=== PATIENT | female | born 1965 | race Caucasian/White ===

== ENCOUNTER 2017-10-12 10:30 | Outpatient (RCR) | payer OTHER, SELFPAY ==
--- NOTE | 2017-08-18 08:43 | HP.OTEVAL_ITS ---
Patient's Visit Information STEPHEN AGGARWAL is a 52 year old F, referred to Occupational Therapy by DR.JGESLE Chaz, with a diagnosis of Repair of ulnar collateral lig.. 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 Pt went to [facility] had x-rays without any fracture noted. Pt was seen by a doctor in [place]- who indicated there was a torn lig. and that she needed sx. pt underwent a ulnar collateral lig. repair Jun.27. cast was removed on . and has attendend 1st therapy session. 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 with BADLS and IADLS by d/c. Pt will demo a increase in right lateral and tripod pinch to increase her ind. with her FMS, meal prep and cleaning by d/c Goal:: pt will will demo a increase in IF flex to 20 degrees to increase pts ind. with BADLS and IADLS Goal:: pt will report pain no greater than 2/10 with use of righ hand for BADls and IADLS Goal:: pt will demo ind.with picking up coins, buttons, zippers etc to increase pts ind. with money and FM manipulation by d/c Goal:: pt will demo understanding of scar mtg by end of 2nd session. - Rehabilitation General Assessment: pt demo with decreased functional ROM and strength of right thumb following right ulnar collateral lig. repair. pt would benefit from skilld OTR/L, CHT services to return pt to PLOF Rehabilitation Potential: Good - Anticipated Interventions Anticipated Interventions: A/AAROM/PROM, Strengthening, Scar Care, Triggerpoint Release, Desensitization, Modalities - Visit Plan Frequency: 2-3x /Week Duration: 4-6 Weeks General Plan: skilled therapy services with initiate ROM, scar mtg and desensitization and progress to PRE to return pt to PLOF. TEXT: Thank you for the opportunity to evaluate your patient. For Medicare and Medicare HMO plans, please review the plan of care and approve it. It will need to be FAXED BACK to us at [phone] for Medicare purposes. Please let me know if there are questions or concerns regarding this plan of care. Physician Signature: Date:
--- NOTE | 2017-12-13 11:45 | HP.OT.NRP ---
HP - Discharge Summary - Patient Information STEPHEN AGGARWAL was seen in my office for initial evaluation on 08/17/17. The following Plan of Care was established for this patient: Initial Frequency: 2-3x /Week Initial Duration: 4-6 Weeks Plan: cont POC - Anticipated Interventions Anticipated Interventions: A/AAROM/PROM, Strengthening, Scar Care, Triggerpoint Release, Desensitization, Modalities This patient was last seen in our office 10/12/17. Pertinent comments regarding their Occupational therapy will appear below: Pt was seen for 10 inital visits and 3 of her 12 following approved visits- pt made good gains and was last seen on 10-12-17- pt has not scheduled any further apts and is D/C at this time. At this point I will be discontinuing this patient from occupational therapy. I would be happy to see this patient again in the future if found appropriate by the physician. Thank you! Pauline Kim, OTR/L, CHT
== END 2017-10-12 19:00 | disposition home or self-care (01) ==
LOC: OT 10:30
PROVIDERS: Family Provider Family Medicine; PCP Family Medicine; Visit Provider Orthopaedic Surgery
DX: S63.641D Sprain of metacarpophalangeal joint of right thumb, subsequent encounter (principal)
CPT/HCPCS: 97035; 97110; 97140; 97166; 97530

== ENCOUNTER 2017-10-24 07:02 | Day surgery (SDC) | payer MEDICAID, SELFPAY ==
--- NOTE | 2017-10-23 21:28 | PCM.HP.BLA ---
History and Physical Date of Admission: 10/24/17 HISTORY OF PRESENT ILLNESS: 52-year-old woman presents with a painful recurrent soft tissue mass right lateral abdominal wall that has increased in size over the last several months. She denies any trauma. There is discomfort when she bumps it. She denies any fever. She denies any recent infection or some recent drainage. She presents at this time for further evaluation and treatment. PAST MEDICAL HISTORY: Anemia. chickenpox. frequent headaches. anxiety. tonsillitis. painful lipoma right abdominal wall. painful lipoma left hip. painful lipoma left lateral malleolus. lipoma upper neck/inferior chin. lipoma right lateral malleolus area. back pain. obesity. painful soft tissue mass right anterolateral ankle. Torn ulnar collateral ligament right thumb PAST SURGICAL HISTORY: Lipoma removal, cholecystectomy, ablation, , tonsillectomy, all teeth removed and she has dentures, excision of painful soft tissue mass, right abdominal wall with layered closure - September,. excision of painful soft tissue mass on left hip with layered closure and excision painful soft tissue mass on left lateral malleolus with layered closure - October,. excision painful soft tissue mass right lateral malleolus area with layered closure and excision painful soft tissue mass upper neck/inferior chin with layered closure - January,. Excision 5 cm painful soft tissue mass right anterolateral ankle - 10/21/13 Diagnostic knee scope with a partial synovectomy and plica resection, chondroplasty of the patellofemoral joint and chondroplasty of the medial femoral condyle - 04/03/14 Hysterectomy Repair ulnar collateral ligament injury right thumb - 07/09 MEDICATIONS: Sulindac, ipratropium, Advair, fluticasone, Advil, tramadol and metaxalone. Mobic. ALLERGIES: AMOXICILLIN, VICODIN, PERCOCET, AND PENICILLIN. SOCIAL HISTORY: The patient does not smoke. The patient does not drink alcohol. The patient does not use aspirin. The patient uses ibuprofen as needed for pain. FAMILY HISTORY: Negative for skin cancer. Positive for mental retardation, anemia, hypertension, seizures, autism, rheumatoid arthritis, cancer, diabetes. Negative for bleeding disorders. REVIEW OF SYSTEMS: GENERAL: Denies fever, fatigue and weight loss. EYES: Denies eye pain. ENT: Denies nasal congestion and sore throat. Had tonsillectomy and all teeth removed and has dentures. CARDIOVASCULAR: Denies chest pain, fatigue, lightheadedness and shortness of breath with exertion. RESPIRATORY: Denies cough and shortness of breath. GASTROINTESTINAL: Denies nausea, vomiting, diarrhea or constipation. Had cholecystectomy. GENITOURINARY: Denies hematuria and urinary frequency. Had and had ablation. MUSCULOSKELETAL: Complains of back pain. Denies joint pain, stiffness, muscle weakness or arthritis. Has had right knee pain. INTEGUMENTARY: Has painful soft tissue mass right lateral abdominal wall. Has had multiple lipomas excised in the past. NEUROLOGIC: Complains of headaches, numbness, tingling and weakness. Denies poor balance. PSYCHOLOGICAL: Complains of anxiety. Denies depression. ENDOCRINE: Denies excessive thirst or urination. HEMATOLOGIC: Denies abnormal bruising and fevers. Denies anemia. PHYSICAL EXAMINATION: HEENT: Pupils equal, round and reactive to light. Extraocular muscles intact. Throat is clear. NECK: Supple. Nontender. No cervical adenopathy. LUNGS: Clear to auscultation. HEART: Regular rate and rhythm. ABDOMEN: Soft. nondistended. On the right lateral abdominal wall is a soft tissue mass that is mobile. Measures 1.5 cm. Slight tenderness to palpation. No ulceration. No drainage. No evidence of infection. EXTREMITIES: No clubbing, cyanosis or edema. Full range of motion her lower extremities. No axillary adenopathy. No inguinal adenopathy. NEUROLOGIC: Cranial nerves II-XII are grossly intact. IMPRESSION: 1.5-cm painful recurrent soft tissue mass right lateral abdominal wall. PLAN: Recommend excision of this painful recurrent soft tissue mass right lateral abdominal wall and send it to Pathology for analysis to rule out carcinoma. Surgery will be done under anesthesia on an outpatient basis. Depending on the size of the cavity after excision, a drain may be necessary. The patient was informed of the risks and complications of the procedure, including alternatives of surgery. These were discussed with her personally. She voiced understanding and wished to proceed. Some of the risks and complications were included in a form from the [employer].
--- NOTE | 2017-10-24 07:09 | EKG12_ITS ---
Test Reason : PREOP Blood Pressure : / mmHG Vent. Rate : 068 BPM Atrial Rate : 068 BPM P-R Int : 154 ms QRS Dur : 098 ms QT Int : 418 ms P-R-T Axes : 025 -10 022 degrees QTc Int : 444 ms Normal sinus rhythm Normal ECG When compared with ECG of 21-OCT-2013 11:42, No significant change was found Confirmed by TIARRA GEORGE, NELSON ([id number]), rewrite editor RHODA TOBAR ([id number]) on 10/27/2017 1:06:30 PM Referred By: Mukund Curry Confirmed By:NELSON MAYEN MD
[2017-10-24 07:30] VITALS: BP 109/61; PULSE 79; RESP 18; TEMP 36.6; O2SAT 100; BMI 43.9
--- NOTE | 2017-10-24 08:00 | MASS_PTH ---
PATIENT: STEPHEN STALLWORTH LOC: [facility] [place] U#:[id number] AGE/SX: 52/F ROOM: RE10/24/[address]: Dr. Mukund Curry MD : [id number] BED: DIS: 10/24/2017 SPEC #: [id number] RECD: 10/24/17 10:32 STATUS: SUKUMAR ROSE #: [id number] JOSAFAT: 10/24/17 08:[address]: Mukund Curry DEPT: SURGICAL PATHOLOGY RECD BY: Noe Renteria ENTERED: 10/24/17 13:18 SP TYPE: Mass OTHR DR: Dr. Sammy Inman MD Tissues: Abdomen, NOS Procedures: Surgery Specimen Level III HEADER OPERATION: Excision mass lateral abdominal wall PRE-OP DIAGNOSIS: 1.5 cm painful soft tissue mass right lateral abdominal wall TISSUE SUBMITTED: Painful soft tissue mass right lateral abdominal wall MICROSCOPIC DIAGNOSIS Painful soft tissue mass right lateral abdominal wall, excision: Mature adipose tissue, consistent with lipoma. SJ:lyssa 10/25/17 MICROSCOPIC DESCRIPTION Slides are reviewed. GROSS DESCRIPTION Received in fixative is one container labeled with the patient's name and designated painful soft tissue mass right lateral abdominal wall. The specimen consists of a piece of skin with underlying adipose tissue. The skin piece measures 5 x 1 cm. The underlying adipose tissue is partly disrupted and measures 8 x 8 x 4 cm. Also present in the container is a piece of yellow adipose tissue measuring 2.5 x 1.5 x 0.5 cm. Sections reveal yellow adipose cut surfaces without any solid mass lesion. Core Blower Operator sections are submitted in three cassettes. / NATAN:lyssa 10/24/17 TC:1 CPT: 88652
[2017-10-24] MEDS: Clindamycin 900 MG/50 ML BAG 75 MG IV (08:30)
[2017-10-24 09:31] VITALS: BP 109/61; BP 124/81; PULSE 73; RESP 18; TEMP 36.3; O2SAT 97
--- NOTE | 2017-10-24 09:33 | OP.PN_ITS ---
Immediate Post-Op Note Date of Procedure: 10/24/17 Primary Surgeon/Physician: Mukund Curry advertising inserter: None Pre-Operative Diagnosis: 1.5-cm painful recurrent soft tissue mass right lateral abdominal wall. Post-Operative Diagnosis: 1.5-cm painful recurrent subfascial soft tissue mass right lateral abdominal wall. Surgery/Procedure Performed:: Excision 1.5-cm painful recurrent subfascial soft tissue mass right lateral abdominal wall with 7 cm complex closure. Description of Surgical Findings:: 52-year-old woman presents with a painful recurrent soft tissue mass right lateral abdominal wall that has increased in size over the last several months. She denies any trauma. There is discomfort when she bumps it. She denies any fever. She denies any recent infection or some recent drainage. Today the patient underwent excision 1.5-cm painful recurrent subfascial soft tissue mass right lateral abdominal wall with 7 cm complex closure. I used Deb absorbable hemostat. Reference Number - [id number]. Lot Number - [id number]. Expiration - May 20, 2022. Estimated Blood Loss: 20 ml. Specimen's removed: Painful recurrent subfascial soft tissue mass right lateral abdominal wall to Pathology. Drains: Sim. Type of Anesthesia:: Local MAC - xylocaine with epinephrine and IV sedation. - Admit VTE Documentation VTE Present on Admission: No VTE Mechan Device Prophylaxis: SCD's VTE Pharm Prophylaxis ordered?: No
[2017-10-24 09:35] VITALS: BP 109/61; BP 126/57; PULSE 71; RESP 18; O2SAT 97
[2017-10-24 09:40] VITALS: BP 109/61; BP 130/86; PULSE 71; RESP 18; O2SAT 97
--- NOTE | 2017-10-24 09:42 | PCM.DC ---
You will use the following diet at home:: No restrictions Discharge Activity: May not drive while taking narcotic pain medications., - - no heavy lifting. May shower in (days): 7 - when the drain is removed. May resume sexual activity in: No Restrictions Weight Bearing Status: Weight bearing as tolerated Lifting Restrictions: 20 lbs. Call your doctor if your incision/area has: Continuous Slow Oozing, Sudden Increased Bleeding, Increased Pain/ Swelling, Increased Redness, Foul Smelling Discharge, Swelling at the incision site Call your doctor if you observe: Fever of 101 or Higher, Coldness, Increased Pain, Shortness of breath, Chest pain, Uncontrolled pain Suture Line Care: - - after dressing removed in two days, apply antibiotic ointment to suture line daily. Change Dressing in (Days):: 2 - dry dressings daily. Cleanse incision/area with: - - may get incision wet in the shower in two days. Drain: Suction - rosanna drain to bulb suction. empty and record output daily. Allergies/Adverse Reactions: Allergies amoxicillin [Amoxicillin] Allergy (Verified 10/13/17 10:21) Anaphylaxis hydrocodone bitartrate [From Vicodin] Allergy (Verified 10/13/17 10:21) Nausea oxycodone HCl [From Percocet] Allergy (Verified 10/13/17 10:21) Nausea Penicillins Allergy (Verified 10/13/17 10:21) Swelling Medications to take at Discharge Fluticasone 0.05% [Flonase Nasal [place]] 1 spray NASAL PRN PRN 10/18/13 traMADol [Ultram] 50 mg PO PRN PRN 03/14/14 Chromium/Herbal Complex No.238 [Green Tea Caplet] 1 each PO DAILY 10/13/17 L.acidoph,Paracasei, B.lactis [Probiotic] 1 each PO DAILY 10/13/17 Metformin HCl [Glucophage] 500 mg PO PRN PRN 10/13/17 Multivit-Min/Folic Acid/Biotin [Women Multivit W-Biotin Gummy] 1 each PO DAILY 10/13/17 Ubidecarenone [Co Q-10] 100 mg PO DAILY 10/13/17 Clindamycin HCl [Cleocin] 300 mg PO TID #15 cap 10/24/17 HYDROmorphone tablet [Dilaudid] 2 - 4 mg PO 4X/DAY PRN PRN 4 Days #30 tab 10/24/17 The following prescriptions were given: HYDROmorphone tablet [Dilaudid] 2 - 4 mg PO 4X/DAY PRN PRN 4 Days #30 tab PRN Reason: Pain Clindamycin HCl [Cleocin] 300 mg PO TID #15 cap Primary Care Physician: Sammy Inman MD [Primary Care Provider] - Please Follow Up With: Mukund Curry MD When: one week. call [phone] for appt. Proposed Discharge Date: 10/24/17
[2017-10-24 09:45] VITALS: BP 109/61; BP 123/67; PULSE 70; RESP 18; TEMP 36.5; O2SAT 95
--- NOTE | 2017-10-24 09:47 | DCINST_ITS ---
You will use the following diet at home:: No restrictions Discharge Activity: May not drive while taking narcotic pain medications., - - no heavy lifting. May shower in (days): 7 - when the drain is removed. May resume sexual activity in: No Restrictions Weight Bearing Status: Weight bearing as tolerated Lifting Restrictions: 20 lbs. Call your doctor if your incision/area has: Continuous Slow Oozing, Sudden Increased Bleeding, Increased Pain/ Swelling, Increased Redness, Foul Smelling Discharge, Swelling at the incision site Call your doctor if you observe: Fever of 101 or Higher, Coldness, Increased Pain, Shortness of breath, Chest pain, Uncontrolled pain Suture Line Care: - - after dressing removed in two days, apply antibiotic ointment to suture line daily. Change Dressing in (Days):: 2 - dry dressings daily. Cleanse incision/area with: - - may get incision wet in the shower in two days. Drain: Suction - rosanna drain to bulb suction. empty and record output daily. Allergies/Adverse Reactions: Allergies amoxicillin [Amoxicillin] Allergy (Verified 10/13/17 10:21) Anaphylaxis hydrocodone bitartrate [From Vicodin] Allergy (Verified 10/13/17 10:21) Nausea oxycodone HCl [From Percocet] Allergy (Verified 10/13/17 10:21) Nausea Penicillins Allergy (Verified 10/13/17 10:21) Swelling Medications to take at Discharge Fluticasone 0.05% [Flonase Nasal [place]] 1 spray NASAL PRN PRN 10/18/13 traMADol [Ultram] 50 mg PO PRN PRN 03/14/14 Chromium/Herbal Complex No.238 [Green Tea Caplet] 1 each PO DAILY 10/13/17 L.acidoph,Paracasei, B.lactis [Probiotic] 1 each PO DAILY 10/13/17 Metformin HCl [Glucophage] 500 mg PO PRN PRN 10/13/17 Multivit-Min/Folic Acid/Biotin [Women Multivit W-Biotin Gummy] 1 each PO DAILY 10/13/17 Ubidecarenone [Co Q-10] 100 mg PO DAILY 10/13/17 Clindamycin HCl [Cleocin] 300 mg PO TID #15 cap 10/24/17 HYDROmorphone tablet [Dilaudid] 2 - 4 mg PO 4X/DAY PRN PRN 4 Days #30 tab The following prescriptions were given: HYDROmorphone tablet [Dilaudid] 2 - 4 mg PO 4X/DAY PRN PRN 4 Days #30 tab PRN Reason: Pain Clindamycin HCl [Cleocin] 300 mg PO TID #15 cap Primary Care Physician: Sammy Inman MD [Primary Care Provider] - Please Follow Up With: Mukund Curry MD When: one week. call [phone] for appt. Proposed Discharge Date: 10/24/17
[2017-10-24] MEDS: HYDROmorphone 2 MG TABLET PO (11:05)
[2017-10-24 11:18] VITALS: BP 109/61
--- NOTE | 2017-10-24 17:04 | PCM.OPRPT ---
Report of Operation Date of Procedure: 10/24/17 Pre-Operative Diagnosis: 1.5-cm painful recurrent soft tissue mass right lateral abdominal wall. Post-Operative Diagnosis: 1.5-cm painful recurrent subfascial soft tissue mass right lateral abdominal wall. Surgery/Procedure Performed:: Excision 1.5-cm painful recurrent subfascial soft tissue mass right lateral abdominal wall with 7 cm complex closure. Description of Surgical Findings:: 52-year-old woman presents with a painful recurrent soft tissue mass right lateral abdominal wall that has increased in size over the last several months. She denies any trauma. There is discomfort when she bumps it. She denies any fever. She denies any recent infection or some recent drainage. The patient was informed of the risks and complications of the procedure, including alternatives of surgery. These were discussed with her personally. She voiced understanding and wished to proceed. Some of the risks and complications were included in a form from the [employer]. I used Deb absorbable hemostat. Reference Number - [id number]. Lot Number - [id number]. Expiration - May 20, 2022. 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 Specimen's removed: Painful recurrent subfascial soft tissue mass right lateral abdominal wall to Pathology. Drains: Sim. Estimated Blood Loss (mL): 20 ml. Description of Procedure: Patient was taken to OR in supine position and was given IV sedation. Her abdominal wall was prepped and draped in the usual fashion. SCD's were placed for DVT prophylaxis. Perioperative antibiotics were given intravenously. Using xylocaine with epinephrine, I infiltrated the previous scar on the right lateral abdominal wall. After waiting 5 minutes for the anesthetic to take effect, I excised the previous scar as an elliptical excision down into the subcutaneous tissue. The soft tissue mass was palpable and deep to Jackson's fascia. It was adherent to the abdominal wall fascia. The adherent scar tissue was excised which could explain her painful symptomatology. I excised the soft tissue mass and the surrounding scar tissue which included some abdominal wall fascia in the subcostal area. There was some bleeding in the underlying rectus muscle which was cauterized. The fascial defect was approximated with 2-0 Vicryl simple running suture. The soft tissue mass was then removed and sent to Pathology for analysis to rule out carcinoma. There was a large cavity which was irrigated with saline. Hemostasis was obtained with electrocautery. A size 15 Sim drain was placed through a separate stab incision inferiorly and secured to the skin with 3-0 Nylon suture. I then sprayed Deb absorbable hemostat into the wound to help minimize seroma formation. The wound was then closed in a complex layered fashion using 2-0 Vicryl interrupted sutures for the Jackson's fascia. The deep dermis and subcutaneous tissue was approximated with 4-0 Monocryl interrupted sutures. The skin was approximated with 4-0 Prolene simple interrupted sutures. Antibiotic ointment was applied to the suture line followed by a compression gauze dressing. Patient tolerated the procedure well. She was sent to PACU in satisfactory condition. She will be sent home on antibiotics and pain medication. She will followup in the office in a week for a wound check as well as for discussion of the Pathology report. She will have the drain removed in 10-14 days. The sutures will be removed in 14 days. Grafts/Implants Used: None. - Complications None. - Admit VTE Documentation VTE Present on Admission: No VTE Mechan Device Prophylaxis: SCD's VTE Pharm Prophylaxis ordered?: No Code Visit Surgery Charges CPT - 33913 ICD-10 - R22.2, D17.1 05359 R22.2, D17.1
--- NOTE | 2017-10-25 17:04 | OP.PCM_ITS ---
Report of Operation Date of Procedure: 10/24/17 Pre-Operative Diagnosis: 1.5-cm painful recurrent soft tissue mass right lateral abdominal wall. Post-Operative Diagnosis: 1.5-cm painful recurrent subfascial soft tissue mass right lateral abdominal wall. Surgery/Procedure Performed:: Excision 1.5-cm painful recurrent subfascial soft tissue mass right lateral abdominal wall with 7 cm complex closure. Description of Surgical Findings:: 52-year-old woman presents with a painful recurrent soft tissue mass right lateral abdominal wall that has increased in size over the last several months. She denies any trauma. There is discomfort when she bumps it. She denies any fever. She denies any recent infection or some recent drainage. The patient was informed of the risks and complications of the procedure, including alternatives of surgery. These were discussed with her personally. She voiced understanding and wished to proceed. Some of the risks and complications were included in a form from the [employer]. I used Deb absorbable hemostat. Reference Number - [id number]. Lot Number - [id number]. Expiration - May 20, 2022. nuclear officer: None Type of Anesthesia:: Local MAC - xylocaine with epinephrine and IV sedation. Specimen's removed: Painful recurrent subfascial soft tissue mass right lateral abdominal wall to Pathology. Drains: Sim. Estimated Blood Loss (mL): 20 ml. Description of Procedure: Patient was taken to OR in supine position and was given IV sedation. Her abdominal wall was prepped and draped in the usual fashion. SCD's were placed for DVT prophylaxis. Perioperative antibiotics were given intravenously. Using xylocaine with epinephrine, I infiltrated the previous scar on the right lateral abdominal wall. After waiting 5 minutes for the anesthetic to take effect, I excised the previous scar as an elliptical excision down into the subcutaneous tissue. The soft tissue mass was palpable and deep to Jackson's fascia. It was adherent to the abdominal wall fascia. The adherent scar tissue was excised which could explain her painful symptomatology. I excised the soft tissue mass and the surrounding scar tissue which included some abdominal wall fascia in the subcostal area. There was some bleeding in the underlying rectus muscle which was cauterized. The fascial defect was approximated with 2-0 Vicryl simple running suture. The soft tissue mass was then removed and sent to Pathology for analysis to rule out carcinoma. There was a large cavity which was irrigated with saline. Hemostasis was obtained with electrocautery. A size 15 Sim drain was placed through a separate stab incision inferiorly and secured to the skin with 3-0 Nylon suture. I then sprayed Deb absorbable hemostat into the wound to help minimize seroma formation. The wound was then closed in a complex layered fashion using 2-0 Vicryl interrupted sutures for the Jackson's fascia. The deep dermis and subcutaneous tissue was approximated with 4-0 Monocryl interrupted sutures. The skin was approximated with 4-0 Prolene simple interrupted sutures. Antibiotic ointment was applied to the suture line followed by a compression gauze dressing. Patient tolerated the procedure well. She was sent to PACU in satisfactory condition. She will be sent home on antibiotics and pain medication. She will followup in the office in a week for a wound check as well as for discussion of the Pathology report. She will have the drain removed in 10-14 days. The sutures will be removed in 14 days. Grafts/Implants Used: None. - Complications None. - Admit VTE Documentation VTE Present on Admission: No VTE Mechan Device Prophylaxis: SCD's VTE Pharm Prophylaxis ordered?: No Code Visit Surgery Charges CPT - 85386 ICD-10 - R22.2, D17.1 21511 R22.2, D17.1
== END 2017-10-24 11:18 | disposition home or self-care (01) ==
LOC: SDC 07:04 → AC 07:05
PROVIDERS: Family Provider Family Medicine; PCP Family Medicine; Visit Provider Surgery
PROC: (CPT 11402; principal; 2017-10-24 07:45)
DX: D17.1 Benign lipomatous neoplasm of skin and subcutaneous tissue of trunk (principal); F41.9 Anxiety disorder, unspecified; R51 Headache; M54.9 Dorsalgia, unspecified; E66.9 Obesity, unspecified; Z87.2 Personal history of diseases of the skin and subcutaneous tissue; Z68.41 Body mass index [BMI] 40.0-44.9, adult; Z79.891 Long term (current) use of opiate analgesic; Z79.899 Other long term (current) drug therapy; Z79.84 Long term (current) use of oral hypoglycemic drugs
CPT/HCPCS: 11402; 12032; 88304; 88305; 93005; J7120

== ENCOUNTER → 2018-02-01 15:58 | Outpatient (CLI) | payer MEDICAID, SELFPAY ==
--- NOTE | 2018-02-01 16:04 | RAD_ITS ---
STUDY: X-RAY - RIGHT ELBOW REASON FOR EXAM: Female, 52 years old. Swelling TECHNIQUE: 3 view(s) of the elbow. COMPARISON: None. FINDINGS: Normal visualized humerus, radius and ulna. Normal radiocapitellar and ulnotrochlear articulations. The soft tissue structures are unremarkable. RAD/Elbow min 3 Views IMPRESSION: Normal x-ray examination of the elbow. Electronically Signed: Moe Ybarra MD at 8:59 EDT , Service support ,
== END ==
PROVIDERS: Family Provider Family Medicine; PCP Family Medicine; Visit Provider Surgery
DX: R22.31 Localized swelling, mass and lump, right upper limb (principal)
CPT/HCPCS: 73080

== ENCOUNTER → 2018-03-22 08:07 | Outpatient (CLI) | payer MEDICAID, SELFPAY | PROVIDERS: Family Provider Family Medicine; PCP Family Medicine; Visit Provider Orthopaedic Surgery | DX: M25.561 Pain in right knee (principal) | CPT/HCPCS: 73564 ==

== ENCOUNTER → 2018-03-30 16:51 | Outpatient (CLI) | payer MEDICAID, SELFPAY | PROVIDERS: Family Provider Family Medicine; PCP Family Medicine; Visit Provider Orthopaedic Surgery | DX: M23.41 Loose body in knee, right knee (principal); S83.241A Other tear of medial meniscus, current injury, right knee, initial encounter | CPT/HCPCS: 73721 ==

== ENCOUNTER 2018-05-02 09:48 | Day surgery (SDC) | payer MEDICAID, SELFPAY ==
[2018-05-02] VITALS (7 sets, daily range): BP systolic 105–141; BP diastolic 50–79; PULSE 64–72; RESP 16–18; TEMP 36.6–36.8; O2SAT 18–99; BMI 44.3
[2018-05-02] MEDS: Mupirocin Ointment 22gm Tube 1 APPLIC (10:15)
[2018-05-02] MEDS: Bupiv/Epi 0.5% Mpf 30 ML Vial (13:14)
--- NOTE | 2018-05-02 13:14 | PCM.DC.ORTHO ---
Discharge Diet: No Restrictions - wbat right le, may remove dressing pod 4 and get incision wet at that time, follow up in 2 weeks, call with concerns Discharge Activity: May Not Drive May shower in (days): 1 Ice area for (Minutes): 20 - Every hour while awake. Weight Bearing Status: Weight bearing as tolerated Keep extremity elevated above heart level: Operative Extremity Call your doctor if your incision/area has: Continuous Slow Oozing, Sudden Increased Bleeding, Increased Pain/ Swelling, Increased Redness, Foul Smelling Discharge Call your doctor if you observe: Fever of 101 or Higher, Coldness, Increased Pain, Numbness or Tingling, Change in Color, Calf discomfort Allergies/Adverse Reactions: Allergies amoxicillin [Amoxicillin] Allergy (Verified 04/25/18 09:59) Anaphylaxis hydrocodone bitartrate [From Vicodin] Allergy (Verified 04/25/18 09:59) Nausea oxycodone HCl [From Percocet] Allergy (Verified 04/25/18 09:59) Nausea Penicillins Allergy (Verified 04/25/18 09:59) Swelling Medications to take at Discharge Fluticasone 0.05% [Flonase Nasal [place]] 1 spray NASAL PRN PRN 10/18/13 traMADol [Ultram] 50 mg PO PRN PRN 03/14/14 Chromium/Herbal Complex No.238 [Green Tea Caplet] 1 ea PO DAILY 10/13/17 L.acidoph,Paracasei, B.lactis [Probiotic] 1 ea PO DAILY PRN 10/13/17 Multivit-Min/Folic Acid/Biotin [Women Multivit W-Biotin Gummy] 1 ea PO DAILY 10/13/17 Ubidecarenone [Co Q-10] 100 mg PO DAILY 10/13/17 HYDROmorphone tablet [Dilaudid] 2 mg PO Q4H PRN PRN 5 Days #20 tablet 05/02/18 The following prescriptions were given: HYDROmorphone tablet [Dilaudid] 2 mg PO Q4H PRN PRN 5 Days #20 tablet PRN Reason: Pain Primary Care Physician: Sammy Inman MD [Primary Care Provider] - Test Results: Test results from this visit will be discussed in further detail at your follow-up appointment, if applicable. Please Follow Up With: Carolina Polanco, - [phone]
--- NOTE | 2018-05-02 13:15 | PCM.OPRPT ---
Report of Operation Date of Procedure: 05/02/18 Pre-Operative Diagnosis: right knee medial meniscus tear, osteoarthritis Post-Operative Diagnosis: same Surgery/Procedure Performed:: right knee arthroscopy, patellofemoral chondroplasty, partial medial meniscectomy, osteophyte debridement general lot attendant: Grzegorz Bagrer Type of Anesthesia:: General Anesthesiologist: Bari Hebert Estimated Blood Loss (mL): min Fluids Replaced: 1000ml lr Description of Procedure: Preoperative note Patient is a with continued right knee pain and instability locking and instability medial meniscus confirmed on MRI as well as osteoarthritis. Risks benefits and alternatives surgery discussed with patient. Risks including but not limited to blood loss, blood clot, infection, neurovascular injury, failure procedure, loss of life and loss of limb. Patient is aware like proceed with right knee arthroscopy repair is indicated. Operative note Patient seen and examined preoperative holding area. Right knee was marked. Patient brought to the operating room and placed supine on the operating room table. Signing, anesthesia, antibiotics were administered. Right knee was prepped and draped in usual sterile fashion with a tourniquet around her upper thigh. We used her previous portals from the anterior medial anterolateral portals from her previous meniscectomy done at an outside hospital. Timeout performed then we then elevated extremity the leg and tourniquet was raised her pressure of 200 300 torr. We then used an anterior 11 blade to create her anterior lateral portal. Begin our diagnostic arthroscopy. There is grade 3 changes throughout her entire trochlea there was some grade 2 changes on the inferior and middle facet of the patella there are grade 3 changes throughout the entire medial facet of the femoral condyle and the medial tibial plateau there was some slight degenerative fraying and there was an unstable flap tear on the medial portion of the medial meniscus. We created an anterior medial portal under direct visualization. We resected back the unstable portion of the meniscus we also used a shaver to debride back the medial femoral condyle and is any unstable loose pieces as well as the patellofemoral joint and the patellofemoral assist me chondroplasty was performed. She had an inferior osteophyte at the inferior pole of the patella which was debrided with a shaver as well. ACL PCL were present within the notch.. The lateral meniscus was intact stable probing the lateral femoral condyle lateral tibial plateau were intact stable probing as well. She had some synovitis in both of the anterior medial anterolateral gutters which was gently debrided. The knee was irrigated with copious amounts of sterile saline. The portals were closed with interrupted 4 nylons sterile dressings were applied tourniquet was deflated for total working time of 27 minutes. Patient transferred to recovery room in stable condition no complications patient tolerated procedure well. Tourniquet time 27 minutes. Postoperative note Pharmacy has prescription S Follow-up in 2 weeks we will get pictures to family at that time as Call with increased pain numbness tingling or further issues arise Dragon disclaimer This note was generated with [employer] dictation software. It may contain incorrect words, spelling, and punctuation that were not noted in checking the note before signing.
--- NOTE | 2018-05-02 13:19 | OP.PCM_ITS ---
Report of Operation Date of Procedure: 05/02/18 Pre-Operative Diagnosis: right knee medial meniscus tear, osteoarthritis Post-Operative Diagnosis: same Surgery/Procedure Performed:: right knee arthroscopy, patellofemoral chondroplasty, partial medial meniscectomy, osteophyte debridement risk and insurance manager: Grzegorz Barger Type of Anesthesia:: General Anesthesiologist: Bari Hebert Estimated Blood Loss (mL): min Fluids Replaced: 1000ml lr Description of Procedure: Preoperative note Patient is a with continued right knee pain and instability locking and instability medial meniscus confirmed on MRI as well as osteoarthritis. Risks benefits and alternatives surgery discussed with patient. Risks including but not limited to blood loss, blood clot, infection, neurovascular injury, failure procedure, loss of life and loss of limb. Patient is aware like proceed with right knee arthroscopy repair is indicated. Operative note Patient seen and examined preoperative holding area. Right knee was marked. Patient brought to the operating room and placed supine on the operating room table. Signing, anesthesia, antibiotics were administered. Right knee was prepped and draped in usual sterile fashion with a tourniquet around her upper thigh. We used her previous portals from the anterior medial anterolateral portals from her previous meniscectomy done at an outside hospital. Timeout performed then we then elevated extremity the leg and tourniquet was raised her pressure of 200 300 torr. We then used an anterior 11 blade to create her anterior lateral portal. Begin our diagnostic arthroscopy. There is grade 3 changes throughout her entire trochlea there was some grade 2 changes on the inferior and middle facet of the patella there are grade 3 changes throughout the entire medial facet of the femoral condyle and the medial tibial plateau there was some slight degenerative fraying and there was an unstable flap tear on the medial portion of the medial meniscus. We created an anterior medial portal under direct visualization. We resected back the unstable portion of the meniscus we also used a shaver to debride back the medial femoral condyle and is any unstable loose pieces as well as the patellofemoral joint and the patellofemoral assist me chondroplasty was performed. She had an inferior ost eophyte at the inferior pole of the patella which was debrided with a shaver as well. ACL PCL were present within the notch.. The lateral meniscus was intact stable probing the lateral femoral condyle lateral tibial plateau were intact stable probing as well. She had some synovitis in both of the anterior medial anterolateral gutters which was gently debrided. The knee was irrigated with copious amounts of sterile saline. The portals were closed with interrupted 4 nylons sterile dressings were applied tourniquet was deflated for total working time of 27 minutes. Patient transferred to recovery room in stable condition no complications patient tolerated procedure well. Tourniquet time 27 minutes. Postoperative note Pharmacy has prescription S Follow-up in 2 weeks we will get pictures to family at that time as Call with increased pain numbness tingling or further issues arise Dragon disclaimer This note was generated with misterbnb dictation software. It may contain incorrect words, spelling, and punctuation that were not noted in checking the note before signing.
[2018-05-02] MEDS: HYDROcodone Bitartrate/Apap 5/325 Tablet PO (14:32)
== END 2018-05-02 15:18 | disposition home or self-care (01) ==
LOC: SDC 09:48 → AC 09:49
PROVIDERS: Family Provider Family Medicine; PCP Family Medicine; Visit Provider Orthopaedic Surgery
PROC: (CPT 29870; principal; 2018-05-02 11:00)
DX: S83.411A Sprain of medial collateral ligament of right knee, initial encounter (principal); M17.11 Unilateral primary osteoarthritis, right knee; M23.203 Derangement of unspecified medial meniscus due to old tear or injury, right knee; E66.9 Obesity, unspecified; Z68.41 Body mass index [BMI] 40.0-44.9, adult; Z79.84 Long term (current) use of oral hypoglycemic drugs; Z79.891 Long term (current) use of opiate analgesic; Z79.899 Other long term (current) drug therapy; X58.XXXA Exposure to other specified factors, initial encounter; Y93.89 Activity, other specified; Y92.89 Other specified places as the place of occurrence of the external cause; Y99.8 Other external cause status
CPT/HCPCS: 29881; J7120; J2405

== ENCOUNTER 2018-06-27 13:30 | Outpatient (RCR) | payer MEDICAID, SELFPAY ==
--- NOTE | 2018-05-22 08:51 | HP.PTEVAL ---
Patient's Visit Information STEPHEN AGGARWAL is a 52 year old F referred to Physical Therapy by Carolina Polanco DO with a diagnosis of Right Knee Scope. Date of Evaluation: 05/22/18 Physical Therapist: Sonam Diaz - Visit Plan Frequency: 2x /Week Duration: 4 Weeks Plan: Focus on LE and core s/s- body mechanics for functional mobility - Subjective Subjective: Right knee DSA a couple of weeks ago- the knee is tender but its typically okay. She has been doing what she can on it. Stairs are better but still hard. Patient reports that she is always on her feet- doesn't like to sit stil- works are [employer]- has a child at home so she does lift but she is extra careful in how she is twisting and turning. Fully I. Worst in the last week: 12/31 Agg: being on her feet to much Best: 08/02 Eases: Ibuprofen. Pain is located around the knee cap- Small radiating pain when she is on her leg a lot down the calf to the ankle- Describes the pain as dull and achy. Hears clicking and creaking. Sleep: occasionally but not often- sleeps mostly on side and belly. Has lots of responsibility with her son. PMhx:right knee surgery 4 years ago Meds: none - Objective Posture: FH, RS, Increased kyphosis- can correct with VC's but does not maintain. Gait: slightly antalgic- decrease stance time on the right LE with poor heel/toe pattern. Stairs: asc/desc 8 recip with 2 HR- asc is slow and she uses UE for significant pull. desc is uncontrolled. HR/TR: able with UE A. SLS: 5 seconds then requires UE A- increased muscle activation. Squat: mini with increased weight shift to the left. Palpation: tender along medial and lateral joint line. ROM: 0-115 degrees with pain at end range. Strength: ankle: 5/5, knee: 4+/5, Hip: 4/5 throughout, Core: fair minus - Goals Goal 1:: Patient will be I with HEP and progression Goal Time Frame: 4-6 Weeks Goal 2:: Patient will demo 5/5 strength in LE Goal Time Frame: 4-6 Weeks Goal 3:: Patient will SLS for 30 sec without LOB and UE A Goal Time Frame: 4-6 Weeks Goal 4:: Patient will lift a box floor to waiste with proper lifting mechanics Goal Time Frame: 4-6 Weeks Goal 5:: Patient will maintain proper posture t/o tx session to demo increased core s/s Goal Time Frame: 4-6 Weeks - Rehabilitation Potential Physical Therapy Diagnosis: Patient presents with hypomobility- she has decreased strength, flex and muscular endurance s/p right knee scope leading to abnormal gait pattern and decreased ability to perform ADL's without pain. Rehabilitation Potential: Good - Anticipated Interventions Patient/Client Instruction: Educate patient on: Benefits of Fitness Program Therapeutic Exercise to Include: Strength training, Endurance training, Balance training, Body mechanics, Postural training, Flexibilty training, In an aquatic setting, Dynamic Lumbar Stabilization For the Purpose of:: To improve muscle performance and motor function Thank you for the opportunity to evaluate your patient. For Medicare and Medicare HMO plans, please review the plan of care and approve it. It will need to be FAXED BACK to us at [phone] for Medicare purposes. Please let me know if there are questions or concerns regarding this plan of care. Physician Signature: Date:
--- NOTE | 2018-06-27 13:57 | HP.PTREVAL ---
Carolina Polanco, DO, It has been my pleasure to treat STEPHEN AGGARWAL over the last 4 visits for Right Knee Scope. Please see the progress note below for an update on the physical therapy plan of care! Subjective: Patient reports that she has had 2 deaths in the family in the last few weeks and has not been able to get to therapy apts. She is making some gains but it is not as quick as she was hoping. She would like to continue therapy once the holiday season has ended. She feels that she is 50% better- stairs are still hard and she is sore along the joint line Objective/Function: Posture: FH, RS, Increased kyphosis- can correct with VC's but does not maintain. Gait: slightly antalgic- decrease stance time on the right LE good heel/toe pattern. Stairs: asc/desc 8 recip with 1 HR- asc is slow and she uses UE for control with descent HR/TR: able with UE A. SLS: 10 seconds then requires UE A- increased muscle activation. Palpation: tender along medial and lateral joint line. ROM: 0-115 degrees with pain at end range. Strength: ankle: 5/5, knee: 4+/5, Hip: 4/5 throughout, Core: fair minus Plan Plan: Hold- wants to be re-evaluated after the Goals Goal 1:: Patient will be I with HEP and progression Goal Time Frame: 4-6 Weeks Goal Progress: Progressing Goal 2:: Patient will demo 5/5 strength in LE Goal Time Frame: 4-6 Weeks Goal Progress: Progressing Goal 3:: Patient will SLS for 30 sec without LOB and UE A Goal Time Frame: 4-6 Weeks Goal Progress: Progressing Goal 4:: Patient will lift a box floor to waiste with proper lifting mechanics Goal Time Frame: 4-6 Weeks Goal Progress: Progressing Goal 5:: Patient will maintain proper posture t/o tx session to demo increased core s/s Goal Time Frame: 4-6 Weeks Goal Progress: Progressing Anticipated Interventions Patient/Client Instruction: Educate patient on: Benefits of Fitness Program Therapeutic Exercise to Include: Strength training, Endurance training, Balance training, Body mechanics, Postural training, Flexibilty training, In an aquatic setting, Dynamic Lumbar Stabilization For the Purpose of:: To improve muscle performance and motor function Please do not hesitate to contact me at [phone] by phone or if you have questions or concerns regarding this new plan of care! Sincerely, Sonam Diaz
--- NOTE | 2018-09-18 14:58 | HP.PT.NRP ---
HP - Discharge Summary (1) - Patient Information STEPHEN AGGARWAL was seen in my office for initial evaluation on 05/22/18. The following Plan of Care was established for this patient: Initial Frequency: 2x /Week Initial Duration: 4 Weeks - Anticipated Interventions Patient/Client Instruction: Educate patient on: Benefits of Fitness Program Therapeutic Exercise to Include: Strength training, Endurance training, Balance training, Body mechanics, Postural training, Flexibilty training, In an aquatic setting, Dynamic Lumbar Stabilization For the Purpose of:: To improve muscle performance and motor function This patient was last seen in our office . Pertinent comments regarding their Physical therapy will appear below: Patient has not attended physical therapy in over 60 days- appropriate to discharge and return to MD for further evaluation as needed. At this point I will be discontinuing this patient from physical therapy. I would be happy to see this patient again in the future if found appropriate by the physician. Thank you! PATTI ElizondoT
== END 2018-06-27 19:00 | disposition home or self-care (01) ==
LOC: PT 13:30
PROVIDERS: Family Provider Family Medicine; PCP Family Medicine; Referring Provider Orthopaedic Surgery; Visit Provider Orthopaedic Surgery
DX: Z98.890 Other specified postprocedural states (principal)
CPT/HCPCS: 97113; 97161; 97164

== ENCOUNTER → 2018-06-29 15:20 | Outpatient (CLI) | payer MEDICAID, SELFPAY ==
--- NOTE | 2018-06-29 15:22 | VDLE_ITS ---
Reason For Study: LEG PAIN RIGHT LEFT GSV is normal. CFV is compressible, spontaneous, phasic, CFV is compressible, spontaneous, phasic, competent, and demonstrates normal competent and demonstrates normal augmentation. augmentation. FV is compressible, spontaneous, phasic, competent and demonstrates normal augmentation. POP V is compressible, spontaneous, phasic, competent and demonstrates normal augmentation. T/P Trunk is compressible. PTV is compressible. RT PerV is compressible. Procedure Exam performed in department. A preliminary report was called and/or faxed to Aparna Barger. Interpretation Summary Deep veins of the right lower extremity are patent and compressible segmentally. There is no evidence of right lower extremity deep vein thrombosis. Valvular competence appears intact within the proximal deep venous system on the right . The right greater saphenous vein appears patent and compressible segmentally. Ordering Physician: Sammy Inman MD Referring Physician: Grzegorz Barger Performed By: Andreia Pacheco RVT
== END ==
PROVIDERS: Family Provider Family Medicine; PCP Family Medicine; Referring Provider Physician Assistant; Visit Provider Physician Assistant
DX: M25.461 Effusion, right knee (principal); M25.561 Pain in right knee
CPT/HCPCS: 93971

== ENCOUNTER → 2019-03-27 | Outpatient (CLI) | payer MEDICAID, SELFPAY ==
[2018-05-02 10:10] VITALS: BMI 44.3
--- NOTE | 2019-03-27 16:26 | RAD_ITS ---
HISTORY:right medial clavicle with swelling and displacement anteriorly right medial clavicle with swelling and displacement anteriorly COMPARISON: None FINDINGS: # of images incl. paperwork: 2 XR Clavicle Unilateral: Right BONE AND JOINTS: Evaluation of the medial clavicle is limited on this study due to rotation. It appears mildly superior subluxed in relation to the manubrium. There is acromioclavicular arthropathy. SOFT TISSUES: Unremarkable. No radiopaque foreign body. RAD/Clavicle IMPRESSION: Acromioclavicular arthropathy Question minimal superior subluxation of the medial clavicle in relation to the manubrium. If symptoms persist I would recommend CT examination for further evaluation at 1952 Reported and signed by: Ching Esquivel DO Electronically Signed: Ching Esquivel DO at 19:51 EDT Tel , Service support ,
--- NOTE | 2019-03-27 16:26 | RAD_ITS ---
HISTORY:right side clavicular enlargement right side clavicular enlargement EXAM: XR Chest 2 Views: COMPARISON: None FINDINGS: # of images incl. paperwork: 2 LINES/DEVICES: None. LUNGS: Radiographically clear. No consolidation, edema or effusion. No pneumothorax. MEDIASTINUM AND CARDIOVASCULAR STRUCTURES: Cardiac silhouette not enlarged. BONES AND SOFT TISSUES: There is asymmetry of the joint space between the manubrium and the clavicle from right to left. Minimal superior subluxation of the right clavicle in relation to left. I would consider CT examination for further evaluation RAD/Chest PA and Lateral IMPRESSION: No radiographic evidence of acute cardiopulmonary disease. Asymmetry of the medial clavicles at the manubrial joint as discussed. Consider CT examination for further evaluation at 1954 Reported and signed by: Ching Esquivel DO Electronically Signed: Ching Esquivel DO at 19:52 EDT Tel , Service support ,
== END | disposition home or self-care (01) ==
LOC: MTRAD 16:24
PROVIDERS: Family Provider Family Medicine; PCP Family Medicine; Referring Provider Family Medicine; Visit Provider Family Medicine
DX: M89.311 Hypertrophy of bone, right shoulder (principal)
CPT/HCPCS: 71046; 73000

== ENCOUNTER → 2019-04-23 | Outpatient (CLI) | payer MEDICAID, SELFPAY ==
--- NOTE | 2019-04-23 07:26 | CT_ITS ---
STUDY: CT CHEST WITHOUT CONTRAST REASON FOR EXAM: Female, 53 years old. Subluxation of the right clavicle RADIATION DOSAGE (If Supplied By Facility): CTDIvol = ( 22.69 ) mGy, DLP = ( 1534.52 ) mGycm TECHNIQUE: Transaxial imaging was performed without the administration of intravenous contrast material. Individualized dose optimization techniques were used for this CT. COMPARISON: None. FINDINGS: Minor atelectasis at the right lung base. No pulmonary infiltration or nodule.. There is no demonstrated pleural abnormality. Normal heart and pericardium. Normal mediastinum. Normal hilar regions. Normal unenhanced pulmonary arteries. Normal aorta arch and descending thoracic aorta. Dorsal spine demonstrates advanced spondylosis Superior subluxation of the medial head of the right clavicle with respect to the sternum and mild soft tissue thickening medial to the clavicular head. Postsurgical change status post cholecystectomy. CT/Chest without Contrast IMPRESSION: Mild subluxation of the medial right clavicle with associated soft tissue thickening medial to the head likely posttraumatic. Minor atelectasis at the right lung base. Electronically Signed: Cristian Walters MD at 17:03 EDT , Service support ,
--- NOTE | 2019-04-23 07:27 | CT_ITS ---
STUDY: CT SOFT TISSUE NECK WITHOUT CONTRAST REASON FOR EXAM: Female, 53 years old. Lump over medial clavicle RADIATION DOSAGE (If Supplied By Facility): CTDIvol = ( 22.69 ) mGy, DLP = ( 1534.52 ) mGycm TECHNIQUE: The patient was scanned in a multi-detector CT scanner. High resolution transaxial imaging was performed without the administration of intravenous contrast material. Sagittal and coronal images were reconstructed. Individualized dose optimization techniques were used for this CT. COMPARISON: None. FINDINGS: Normal bilateral parotid glands. Normal bilateral telesales representative spaces. Normal bilateral parapharyngeal spaces. Normal bilateral carotid spaces. Normal bilateral sublingual and submandibular glands and spaces. Normal visualized nasopharynx. Normal retropharyngeal space. Normal perivertebral space. Normal visualized bilateral faucial tonsils. The visualized tongue, tongue base and oropharynx are normal. The visualized cervical lymph nodes (levels I-) are within normal size limits, and maintain normal morphology. There is no demonstrated solid or cystic mass lesion. Normal epiglottis, bilateral vallecula and hypopharynx. The pre-epiglottic and paraglottic adipose spaces are normal. Normal visualized bilateral piriform sinuses, aryepiglottic folds, vocal cords, and arytenoid-cricoid articulations. Normal subglottic trachea. Mild thyromegaly without well-defined nodule.. Normal visualized pulmonary apices. Normal visualized paranasal sinuses. Cervical spine demonstrates mild spondylosis The medial right clavicle appears to be mildly displaced superiorly with respect to the sternoclavicular joint when compared with the left with asymmetric soft tissue thickening medial to the clavicular head likely posttraumatic CT/Soft Tissue Neck without Contr IMPRESSION: Mild superior subluxation of the medial right clavicle with respect to the sternoclavicular joint with soft tissue thickening medial to the clavicular head likely posttraumatic Electronically Signed: Cristian Walters MD at 16:59 EDT , Service support ,
== END | disposition home or self-care (01) ==
PROVIDERS: Family Provider Family Medicine; PCP Family Medicine; Referring Provider Family Medicine; Visit Provider Family Medicine
DX: S43.111A Subluxation of right acromioclavicular joint, initial encounter (principal)
CPT/HCPCS: 70490; 71250

== ENCOUNTER → 2019-06-12 15:57 | Outpatient (CLI) | payer MEDICAID, SELFPAY ==
[2019-06-12 17:29] LABS: Absolute Lymphocyte Count 3.85 X10^3/uL (0.83-4.51); Absolute Neutrophil Count 6.8 X10^3/uL (2.0-7.7); Basophil# 0.05 X10^3/uL; Basophil% 0.4 % (0-1); Eosinophil# 0.11 X10^3/uL; Eosinophils% 0.9 % (0-5); Hematocrit 39.4 % (37-47); Hemoglobin 12.7 g/dL (12.0-15.0); Lymphocyte # 3.85 X10^3/ul (4.0); Lymphocyte % 32.7 % (19-41); Mean Corp Hgb Conc 32.2 g/dL (32-36); Mean Corpuscular Volume 83.8 fL (81-99); Monocyte# 0.85 X10^3/uL; Monocyte% 7.2 % (0-10); NRBC Flagged by Analyzer 0 % (0-5); Neutrophil # 6.83 X10^3/uL (2.7-7.7); Neutrophil % 58.2 % (47-70); Platelet Count 319 K/mm3 (150-450); RBC Distribution Width CV 13.7 % (11.6-14.6); RBC Distribution Width SD 42.1 fl (35.1-43.9); White Blood Count 11.8 K/mm3 (4.4-11.0)
[2019-06-12 17:48] LABS: Erythrocyte Sedimentation Rate 28 mm/hr (0-30)
[2019-06-12 18:00] LABS: ALB/GLOB Ratio 1.2 RATIO (0.9-2.4); AST(SGOT) 16 U/L (15-37); Alanine Aminotransfer ALT/SGPT 23 U/L (13-56); Albumin, Serum 3.8 g/dL (3.2-5.0); Alkaline Phosphatase 85 U/L (45-117); Anion Gap 6 (5-15); BUN 9 mg/dL (7-18); BUN/Creat Ratio 12.7 RATIO (10-20); Chloride 107 mmol/L (98-107); Creatinine, Serum 0.71 mg/dL (0.55-1.02); EST Glomerular Filtration Rate 92 mL/min (>60); Est Glom Filt Rate - Afr Amer 111 mL/min (>60); Globulin 3.2 g/dL (2.2-4.2); Glucose 117 mg/dL (74-106); Potassium 3.8 mmol/L (3.5-5.1); Sodium Level 142 mmol/L (136-145)
== END ==
PROVIDERS: Family Provider Family Medicine; PCP Family Medicine; Referring Provider Family Medicine; Visit Provider Family Medicine
DX: M25.562 Pain in left knee (principal)
CPT/HCPCS: 36415; 80053; 85025; 85379; 85652

== ENCOUNTER → 2019-06-17 11:50 | Outpatient (CLI) | payer MEDICAID, SELFPAY ==
--- NOTE | 2019-06-17 11:52 | US_ITS ---
STUDY: SUPERFICIAL ULTRASOUND - LEFT POPLITEAL FOSSA. REASON FOR EXAM: Female, 53 years old. Evaluate for Villatoro's cyst. TECHNIQUE: A superficial ultrasound was performed with real-time and static ng-scale imaging. COMPARISON: None. FINDINGS: Real-time ultrasound directed to the left popliteal fossa reveal normal distribution of soft tissues with no evidence of fluid, fluid collection or mass. No cystic structure seen. US/Ext Non Vasc Limited/Soft Tiss IMPRESSION: Normal soft tissues at the left popliteal fossa with no evidence of cyst, mass or edema. Electronically Signed: Sofi Hackett MD at 0:36 EST , Service support ,
--- NOTE | 2019-06-17 12:05 | RAD_ITS ---
STUDY: X-RAY - LEFT KNEE REASON FOR EXAM: Female, 53 years old. Chronic pain TECHNIQUE: 4 view(s) of the knee. COMPARISON: None. FINDINGS: Normal visualized distal femur. Normal visualized proximal tibia and fibula. Normal proximal tibiofibular articulation. There is no demonstrated fracture. Moderate narrowing of the medial tibiofemoral compartment without osteophytes. Normal lateral femorotibial compartment. Normal patellofemoral articulation. There is no demonstrated joint effusion. The soft tissue structures are unremarkable. RAD/Knee 4 or More Views IMPRESSION: No acute abnormality. Moderate narrowing of the medial tibiofemoral compartment. Electronically Signed: Quan Wilson MD at 21:37 EST , Service support ,
--- NOTE | 2019-06-17 12:06 | RAD_ITS ---
STUDY: X-RAY - PELVIS AND LEFT HIP REASON FOR EXAM: Female, 53 years old. Chronic pain. TECHNIQUE: 3 views of the pelvis and hip. COMPARISON: None. FINDINGS: There is a non-specific bowel gas pattern. Normal visualized soft tissue structures. Normal bilateral iliac wings, sacroiliac joints and visualized sacrum. Normal bilateral superior and inferior pubic rami. There are degenerative changes of the pubic symphysis with articular narrowing and sclerosis. Normal bilateral ischial tuberosities. Normal visualized femoral head. Normal acetabulum. Normal hip joint. RAD/HIP, UNI W/ Pelvis 2-3 Views IMPRESSION: Normal x-ray examination of the pelvis and hip. Electronically Signed: Quan Wilson MD at 20:02 EST , Service support ,
== END ==
PROVIDERS: Family Provider Family Medicine; PCP Family Medicine; Referring Provider Family Medicine; Visit Provider Family Medicine
DX: M25.562 Pain in left knee (principal)
CPT/HCPCS: 73502; 73564; 76882

== ENCOUNTER → 2019-09-06 | Outpatient (CLI) | payer MEDICAID, SELFPAY ==
[2019-09-06 10:00] VITALS: BMI 44.3
--- NOTE | 2019-09-06 10:26 | RAD_ITS ---
STUDY: X-RAY - LEFT HAND REASON FOR EXAM: Female, 54 years old. FLUID ACCUMULATION POSTERIOR HAND TECHNIQUE: 3 view(s) of the hand. COMPARISON: None. FINDINGS: Normal radiocarpal articulation. Normal distal radioulnar joint. Normal visualized carpal bones. Normal carpal articulations Normal carpometacarpal articulation of the thumb. Normal second through fifth carpometacarpal joints. Normal metacarpi. Normal metacarpophalangeal joint of the thumb. Normal interphalangeal joint of the thumb. Normal proximal and distal phalanges of the thumb. Normal metacarpophalangeal joints of the second through fifth fingers. Normal proximal and distal interphalangeal joints of the second through fifth fingers. Normal phalanges of the second through fifth fingers. The soft tissue structures are unremarkable. RAD/Hand Min 3 Views IMPRESSION: Normal x-ray examination of the hand. Electronically Signed: Zoraida Delgado, at 17:20 EST Tel , Service support ,
== END | disposition home or self-care (01) ==
LOC: HPRAD 10:26
PROVIDERS: PCP Family Medicine; Referring Provider Physician Assistant; Visit Provider Physician Assistant
DX: M71.349 Other bursal cyst, unspecified hand (principal)
CPT/HCPCS: 73130

== ENCOUNTER → 2020-03-27 | Outpatient (CLI) | payer MEDICAID, SELFPAY ==
[2019-09-06 10:00] VITALS: BMI 44.3
[2020-03-19 11:08] VITALS: BMI 44.3
--- NOTE | 2020-03-27 16:14 | MRI_ITS ---
STUDY: MRI LEFT HAND REASON FOR EXAM: Female, 54 years old. LEFT hand pain between the 2nd and 4th knuckle x 4years with history of previous draining of cystic area TECHNIQUE: Standardized fat and water weighted pulse sequences were obtained in all 3 orthogonal planes. COMPARISON: X-ray 09/06/2019, MRI 05/31/2013 FINDINGS: FIRST DIGIT: Normal visualized first metacarpus. Normal metacarpophalangeal joint. Normal interphalangeal joint. Normal proximal, and distal phalanges. Normal flexor and extensor tendons. There is no soft tissue abnormality. SECOND DIGIT: Normal visualized second metacarpus. Normal metacarpophalangeal joint. Normal proximal and distal interphalangeal joints. Normal proximal, middle and distal phalanges. Normal flexor and extensor tendons. There is no soft tissue abnormality. THIRD DIGIT: Normal visualized third metacarpus. Normal metacarpophalangeal joint. Normal proximal and distal interphalangeal joints. Normal proximal, middle and distal phalanges. Normal flexor and extensor tendons. There is no soft tissue abnormality. FOURTH DIGIT: Normal visualized fourth metacarpus. Normal metacarpophalangeal joint. Normal proximal and distal interphalangeal joints. Normal proximal, middle and distal phalanges. Normal flexor and extensor tendons. There is no soft tissue abnormality. FIFTH DIGIT: Normal visualized fifth metacarpus. Normal metacarpophalangeal joint. Normal proximal and distal interphalangeal joints. Normal proximal, middle and distal phalanges. Normal flexor and extensor tendons. There is no soft tissue abnormality. Normal visualized thenar and hypothenar muscles. Normal lumbricalis and interosseous muscles. There are no solid, cystic or lipomatous masses. MRI/Upper Ext/No Jt/ wo IMPRESSION: Normal MRI of the hand. Electronically Signed: Chay Serra MD at 12:56 EDT Tel , Service support ,
== END | disposition home or self-care (01) ==
LOC: MRI 16:14
PROVIDERS: PCP Family Medicine; Referring Provider Physician Assistant; Visit Provider Physician Assistant
DX: R22.32 Localized swelling, mass and lump, left upper limb (principal)
CPT/HCPCS: 73218

== ENCOUNTER → 2020-04-09 | Outpatient (CLI) | payer MEDICAID, SELFPAY ==
[2020-03-19 11:08] VITALS: BMI 44.3
[2020-03-31 14:37] VITALS: BMI 44.3
--- NOTE | 2020-04-09 10:25 | BI_ITS ---
MAMMOGRAPHY - BILATERAL SCREENING REASON FOR EXAM: Female, 54 years old. Routine annual screening examination. PERTINENT HISTORY: Aunt with breast cancer. TECHNIQUE: Digital bilateral breast anurag (3D mammographic acquisition) in the CC and MLO projections. 2-D mediolateral oblique (MLO) and craniocaudad (CC) views of both breasts were obtained. CAD: Full Field Digital Mammography with Computer Added Detection was performed. COMPARISON: Comparison is made with prior examination of 06/19/2017 and 06/17/2016. FINDINGS: Breast Composition: There are scattered areas of fibroglandular density. There are no dominant masses or suspicious calcifications. No other significant abnormalities are identified. There has been no significant change since the prior study. BI/SCREEN MAMM (CAD) W/ANURAG BILAT IMPRESSION: Stable bilateral screening mammogram. Yearly follow-up mammogram recommended. (A) ASSESSMENT CATEGORY: BIRADS Category 1: Negative. A letter regarding these results will be sent to the patient by the facility within 30 days. Approximately 10% of breast cancers are not detected by mammography. A normal mammogram should not delay biopsy of a clinically suspicious abnormality. [id number] Electronically Signed: Armando Contreras, at 12:03 EDT , Service support ,
== END | disposition home or self-care (01) ==
LOC: OPBI 10:24
PROVIDERS: PCP Family Medicine; Referring Provider Family Medicine; Visit Provider Family Medicine
DX: Z12.31 Encounter for screening mammogram for malignant neoplasm of breast (principal)
CPT/HCPCS: 77063; 77067

== ENCOUNTER → 2020-08-24 16:47 | Outpatient (CLI) | payer MEDICAID, SELFPAY ==
[2020-03-31 14:37] VITALS: BMI 44.3
--- NOTE | 2020-08-24 16:53 | CT_ITS ---
STUDY: CT ABDOMEN AND PELVIS WITH CONTRAST REASON FOR EXAM: Female, 55 years old. Right flank pain. Right lower quadrant pain. Elevated WBCs since Monday. RADIATION DOSAGE (If Supplied By Facility): CTDIvol = ( 20.45 ) mGy, DLP = ( 2125.22 ) mGycm TECHNIQUE: Transaxial images were obtained from the dome of the diaphragm to the symphysis pubis with oral contrast. Oral and amp; IV Gastrografin and amp; 100mL Isovue-300 was administered. Sagittal and coronal images were reconstructed. Individualized dose optimization techniques were used for this CT. COMPARISON: 09/13/2013. FINDINGS: The visualized lung bases are unremarkable. The visualized portions of the heart are within normal limits. Normal liver. There are surgical clips in the gallbladder fossa consistent with a prior cholecystectomy. Normal spleen. Normal pancreas. Normal bilateral adrenal glands. Normal right kidney. Normal left kidney. Normal bilateral ureters Normal visualized stomach. Normal small intestine. Normal colon. The appendix is visualized and appears normal. At the base of the cecum adjacent to the appendix is a 2.6 x 1.8 x 2.8 cm mixed density soft tissue mass appears to be partially cystic. This correlates with the position of the right ovary on the previous study. Normal abdominal aorta. Normal inferior vena cava. Normal retroperitoneum. Normal urinary bladder. Normal vaginal cuff. No pelvic lymphadenopathy. No free air or free fluid is seen within the peritoneal cavity. Normal abdominal wall. There are diffuse degenerative changes of the visualized lumbar spine. CT/Abdomen/Pelvis WITH Contrast IMPRESSION: 1. Cystic change in what appears to be the retained right ovary. Patient interval status post hysterectomy 2. Normal appendix. 3. No evidence of renal, ureteral or urinary bladder abnormality 4. No evidence of acute intra-abdominal or pelvic process. Electronically Signed: Sami Carrasco DO at 20:13 EST Tel [phone], Service support ,
[2020-08-24 17:09] LABS: Mucous, Urine 0 SEEN /hpf (<or=2+); Red Blood Cells-Urine 0 SEEN /hpf (0-5); White Blood Cells 0 SEEN /hpf (0-5)
[2020-08-24 17:40] LABS: Absolute Lymphocyte Count 4.04 X10^3/uL (0.83-4.51); Absolute Neutrophil Count 6.3 X10^3/uL (2.0-7.7); Basophil# 0.06 X10^3/uL; Basophil% 0.5 % (0-1); Hematocrit 39.5 % (37-47); Hemoglobin 12.1 g/dL (12.0-15.0); Lymphocyte # 4.04 X10^3/ul (4.0); Lymphocyte % 35.8 % (19-41); Mean Corp Hgb Conc 30.6 g/dL (32-36); Mean Corpuscular Hgb 25.5 pg (27.0-32.0); Mean Corpuscular Volume 83.2 fL (81-99); Mean Platelet Vol. 9.5 fl (6.2-12.0); Monocyte# 0.85 X10^3/uL; Monocyte% 7.5 % (0-10); NRBC Flagged by Analyzer 0 % (0-5); Neutrophil # 6.27 X10^3/uL (2.7-7.7); Neutrophil % 55.6 % (47-70); Platelet Count 293 K/mm3 (150-450); RBC Distribution Width CV 14.4 % (11.6-14.6); RBC Distribution Width SD 43.8 fl (35.1-43.9); Red Blood Count 4.75 M/mm3 (4.2-5.4); White Blood Count 11.3 K/mm3 (4.4-11.0)
[2020-08-24 17:41] LABS: Color, Urine Yellow (Yellow); Glucose, Dipstick Normal (Normal); Ketone-Dipstick Negative (Negative); Leukocyte Esterase-Dipstick 25 /ul (Negative); Nitrite-Dipstick Negative (Negative); Occult Blood-Urine 10 /ul (Negative); Protein-Dipstick Negative (Negative); Specific Gravity, Urine 1.015 (1.002-1.030); Urine Bilirubin Dipstick Negative (Negative); Urine Clarity Clear (Clear); Urine Urobilinogen Normal (Normal)
[2020-08-24 18:01] LABS: Bacteria 1+ /hpf (None Seen); Squamous Epithelial Cells - UA 0-5 SEEN /hpf (5-10)
[2020-08-24 18:12] LABS: ALB/GLOB Ratio 0.9 RATIO (0.9-2.4); AST(SGOT) 17 U/L (15-37); Alanine Aminotransfer ALT/SGPT 23 U/L (13-56); Albumin, Serum 3.3 g/dL (3.2-5.0); Alkaline Phosphatase 84 U/L (45-117); Anion Gap 6 (5-15); BUN 11 mg/dL (7-18); BUN/Creat Ratio 15.8 RATIO (10-20); Chloride 106 mmol/L (98-107); EST Glomerular Filtration Rate 94 mL/min (>60); Est Glom Filt Rate - Afr Amer 113 mL/min (>60); Globulin 3.6 g/dL (2.2-4.2); Glucose 101 mg/dL (74-106); Potassium 4.1 mmol/L (3.5-5.1); Protein, Total 6.9 g/dL (6.4-8.2); Sodium Level 141 mmol/L (136-145)
== END ==
PROVIDERS: PCP Family Medicine; Referring Provider Family Medicine; Visit Provider Family Medicine
DX: R10.31 Right lower quadrant pain (principal); R10.9 Unspecified abdominal pain
CPT/HCPCS: 36415; 74177; 80053; 81001; 85025; 86140; Q9967; A4216

== ENCOUNTER → 2020-12-29 17:08 | Outpatient (CLI) | payer BC, MEDICAID, SELFPAY ==
[2020-03-31 14:37] VITALS: BMI 44.3
--- NOTE | 2020-12-29 17:20 | RAD_ITS ---
STUDY: X-RAY - RIGHT ELBOW REASON FOR EXAM: Female, 55 years old. Elbow pain. TECHNIQUE: 3 view(s) of the elbow. COMPARISON: 02/01/2018. FINDINGS: Normal visualized humerus, radius and ulna. 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 The soft tissue structures are unremarkable. RAD/Elbow min 3 Views IMPRESSION: Mild arthrosis of the elbow joint. No acute finding. Electronically Signed: Anderson Cain MD at 11:16 EDT , Service support ,
== END ==
PROVIDERS: PCP Family Medicine; Referring Provider Family Medicine; Visit Provider Family Medicine
DX: M25.521 Pain in right elbow (principal)
CPT/HCPCS: 73080

== ENCOUNTER → 2023-10-20 | Outpatient (CLI) | payer BC, SELFPAY ==
[2023-10-20 12:20] LABS: Absolute Lymphocyte Count 3.85 X10^3/uL (0.83-4.51); Absolute Neutrophil Count 4.8 X10^3/uL (2.0-7.7); Basophil# 0.06 X10^3/uL; Basophil% 0.6 % (0-1); Eosinophil# 0.21 X10^3/uL; Eosinophils% 2.2 % (0-5); Hematocrit 43.1 % (37-47); Hemoglobin 13.4 g/dL (12.0-15.0); Lymphocyte # 3.85 X10^3/ul (0.83-4.51); Lymphocyte % 39.9 % (19-41); Mean Corp Hgb Conc 31.1 g/dL (32-36); Mean Corpuscular Hgb 26.2 pg (27.0-32.0); Mean Corpuscular Volume 84.2 fL (81-99); Mean Platelet Vol. 9.9 fl (6.2-12.0); Monocyte# 0.65 X10^3/uL; Monocyte% 6.7 % (0-10); NRBC Flagged by Analyzer 0 % (0-5); Neutrophil # 4.83 X10^3/uL (2.7-7.7); Platelet Count 349 K/mm3 (150-450); RBC Distribution Width SD 42.9 fl (35.1-43.9); Red Blood Count 5.12 M/mm3 (4.2-5.4); White Blood Count 9.7 K/mm3 (4.4-11.0)
[2023-10-20 12:31] LABS: Vitamin D,25 Hydroxy 23.8 ng/mL
[2023-10-20 12:52] LABS: ALB/GLOB Ratio 0.9 RATIO (0.9-2.4); AST(SGOT) 22 U/L (15-37); Alanine Aminotransfer ALT/SGPT 29 U/L (13-56); Albumin, Serum 3.7 g/dL (3.2-5.0); Alkaline Phosphatase 97 U/L (45-117); Anion Gap 5 (5-15); BUN 13 mg/dL (7-18); BUN/Creat Ratio 17.1 RATIO (10-20); Calcium,Total 9.3 mg/dL (8.5-10.1); Chloride 107 mmol/L (98-107); Cholesterol 190 mg/dL (200); Creatinine, Serum 0.76 mg/dL (0.55-1.02); EST Glomerular Filtration Rate 84 mL/min (>60); Est Glom Filt Rate - Afr Amer 101 mL/min (>60); Globulin 4.2 g/dL (2.2-4.2); Glucose 119 mg/dL (74-106); High Density Lipoprotein 50 mg/dL; Potassium 4.1 mmol/L (3.5-5.1); Protein, Total 7.9 g/dL (6.4-8.2); Sodium Level 139 mmol/L (136-145); Thyroid Stim Hormone (TSH) 1.94 uIU/mL (0.358-3.74); Triglycerides 169 mg/dL; Very Low Density Lipoprotein 34 mg/dL (5-40)
[2023-10-20 14:04] LABS: Hemoglobin A1c 6.2 % (3.8-5.6)
== END | disposition home or self-care (01) ==
LOC: MTLAB 09:40
PROVIDERS: PCP Family Medicine; Referring Provider Family Medicine; Visit Provider Family Medicine
DX: Z13.220 Encounter for screening for lipoid disorders (principal); E66.01 Morbid (severe) obesity due to excess calories; Z68.41 Body mass index [BMI] 40.0-44.9, adult; R73.03 Prediabetes
CPT/HCPCS: 36415; 80053; 80061; 82306; 83036; 84443; 85025

== ENCOUNTER 2024-12-09 16:00 | Outpatient (RCR) | payer BC, SELFPAY ==
--- NOTE | 2024-11-13 11:27 | HP.PTEVAL_ITS ---
Patient's Visit Information Visit Information Visit Information: STEPHEN STALLWORTH is a 59 year old F referred to Physical Therapy by Benjamin Love MD with a diagnosis of R TKA DOS: 11/08/24. Date of Evaluation: 11/11/24 Physical Therapist: Ming Lim DPT Visit Plan Frequency: 2-3x /Week Duration: 6 Weeks Plan: 1) ROM progression towards 0-0-120deg 2) edema control 3) quad, glute max/min activation progressing to functional strengthening 4) gait training VASO, ice as needed Subjective Subjective: Pt. is here today for her initial evaluation with diagnosis of R TKA DOS: 11/08/24. Pt. arrives with daughter with use of FWW. Pt. reports overall doing okay, but is having some increased pain. She has been stretching and walking at home with good tolerance. Pt. denies N/T, no calf pain, no blurred vision, no chest pains or difficulty with breathing. She has bandage in place and is to take off in ~1 week. 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 Pt. has had multiple arthroscopies on her R knee as well prior to her TKA. Pt. is getting in/out of bed and transferring without issues. Pt. so far is pleased with progress. Pt. is hopeful to get back to all of her work and gardening activities without limitations. Pain R knee: Pain Intensity (Out of 10): 6 Pain Intensity Range: 3 and 8 Objective Objective: POSTURE: Pt. has decent posture in stance. Good R knee extension with equal wt. shifting. between BLEs. PALPATION: negative homans signs, Pt. has some marked swelling, no pitting edema noted. Bandage in place, no signs of infection. Pt. to take bandage off in ~1 week. NEURO: normal sensation in BLEs. Pt. has normal achilles DTR bilaterally. ROM: R knee: 0-2-91deg. PROM. Pt. has decent HS length MMT: RLE: ankle 5/5 throughout. knee: ext 5#, flexion 7#; hip: flexion 3#, abd 0#. TU.1sec with FWW 30sec sit to stand rep test: 10 with use of UEs GAIT: Pt. ambulates with FWW with decreased step length bilaterally, heavy use during R stance phase STAIRS: step to pattern loading LLE only use of 2 HR. Balance/Special Test Scores WOMAC Total Score: 72 WOMAC Percentatge: 25.0000 Goals Goal 1:: LTG: Pt. to be I with HEP. Goal Time Frame: 4-6 Weeks Goal 2:: STG: Pt. to have increased R knee ROM to 0-0-120deg. allowing for increased functional mobility. Goal Time Frame: 2-4 Weeks Goal 3:: LTG: Pt. to be able to ambulate without AD with normal gait pattern without increase in R knee pain. Goal Time Frame: 4-6 Weeks Goal 4:: STG: Pt to sleep throughout the night without increase in symptoms. Goal Time Frame: 2 Weeks Goal 5:: LTG: Pt. to complete 30sec sit stand with at least 15 reps indicating proper functional strength. Goal Time Frame: 4-6 Weeks Goal 6:: LTG: Pt to complete TUG with time less than 10seconds without AD. Goal Time Frame: 4-6 Weeks Rehabilitation Potential Physical Therapy Diagnosis: Pt. has signs and symptoms consistent with R TKA DOS: 11/08/24. Pt. has marked hypomobility, weakness Anticipated Interventions Patient/Client Instruction: Educate patient on: Condition, Plan of Care, Risk Factors and Benefits of Fitness Program For the Purpose of:: To foster healthy habits, To improve decision making, To facilitate caregiver knowledge, To improve self management, To prevent re-injury and To improve ability to perform tasks related to life management Therapeutic Exercise to Include: Strength training, Power training, Endurance training, Balance training, Flexibilty training, Gait and locomotor training, Passive ROM and Active ROM For the Purpose of:: To decrease pain, To decrease swelling/inflammation, To increase ROM, To improve nutrient delivery to tissue, To increase oxygenation perfusion, To improve muscle performance and motor function, To improve ability to perform ADL's, To improve gait and locomotor functions, To improve health of tissue, To decrease soft tissue restriction and To increase flexibility/ROM Manual Therapy Techniques to Include: Mobilization, Passive ROM and Soft tissue mobilization For the Purpose of:: To decrease pain, To decrease swelling/inflammation, To increase ROM, To improve nutrient delivery to tissue, To increase oxygenation perfusion and To improve muscle performance and motor function Cryotherapy (ice pack, ice massage): Yes Vasopneumatic device: Yes For the Purpose of:: To decrease pain, To decrease swelling/inflammation, To increase ROM, To improve nutrient delivery to tissue, To increase oxygenation perfusion and To improve muscle performance and motor function Text: Thank you for the opportunity to evaluate your patient. For Medicare and Medicare HMO plans, please review the plan of care and approve it. It will need to be FAXED BACK to us at [phone] for Medicare purposes. For Medicare only, by signing this I certify the plan of care. Please let me know if there are questions or concerns regarding this plan of care. Physician Signature: Date:
--- NOTE | 2024-12-10 08:47 | HP.PTDCSUM ---
Discharge Summary D/C summary: It has been my pleasure to treat MOUNA STALLWORTH referred by Benjamin Love MD, with the diagnosis of R TKA DOS: 11/08/24 for a total of 11 visit(s). Discharge Date: 12/10/24 Please see the following information for a summary of their discharge status. Subjective Subjective: Pt. reports overall doing well. Pt. was back to work today for first, 8 hour day. Mostly office, but getting up and down frequently. Pt. did take her ice packs with her. Pain R knee: Pain Intensity (Out of 10): 0 Overall Improvement % Improvement: 85 Objective Objective/Function: ROM: AROM: 0-0-115deg PROM 0-0-120deg MMT: R hip: 43.9#, abd 45.9#; knee: ext 40.2#, flex 25.9# L hip: flex 43.8#, abd 50.4#; knee ext: 49.7#, flex 39.6# GAIT: pt. ambulates well without AD. Pt. reports no increase in symptoms. Pt. has good knee ext during swing and good TKE during stance. STAIRS: reciprocal with 1 HR. no pain noted. 30 sec sit to stand: 24 without UEs TU.03sec no AD Goals Goal 1:: LTG: Pt. to be I with HEP. Goal Progress: Goal Met Goal 2:: STG: Pt. to have increased R knee ROM to 0-0-120deg. allowing for increased functional mobility. Goal Progress: Goal Met Goal 3:: LTG: Pt. to be able to ambulate without AD with normal gait pattern without increase in R knee pain. Goal Progress: Goal Met Goal 4:: STG: Pt to sleep throughout the night without increase in symptoms. Goal Progress: Progressing Goal 5:: LTG: Pt. to complete 30sec sit stand with at least 15 reps indicating proper functional strength. Goal Progress: Goal Met Goal 6:: LTG: Pt to complete TUG with time less than 10seconds without AD. Goal Progress: Goal Met Plan Plan: Pt. to be DC from PT at this point in time. Mouna is doing well. Overall she is right where I would expect her to be. She desires to continue with PT on her own at this point in time. D/C Information d/c sentence: If there are questions or concerns regarding this patient's physical therapy, please feel free to call me at [phone]. Thank you for the referral of this patient. Sincerely, PATTI VieiraT Balance/Gait/Functional tests Balance/Special Test Scores Lower Extremity Functional Score: 59 TUG Test Time Seconds: 7.03 Tug Test: <20 sec.=mostly independent 30 Second Chair Rise Test Seconds: 24 WOMAC Total Score: 72 WOMAC Percentage: 25.0000 Improvement % Improvement: 85
== END 2024-12-09 19:00 | disposition home or self-care (01) ==
LOC: PT 16:00
PROVIDERS: PCP Family Medicine; Referring Provider Orthopaedic Surgery; Visit Provider Orthopaedic Surgery
DX: M17.11 Unilateral primary osteoarthritis, right knee (principal)
CPT/HCPCS: 97110; 97140; 97161; 97530

== ENCOUNTER → 2025-01-07 | Outpatient (CLI) | payer BC, SELFPAY ==
--- NOTE | 2025-01-07 16:08 | BI_ITS ---
EXAM: SCRN MAMM (CAD)W/ANURAG BILAT DATE: 01/07/2025 CLINICAL HISTORY: F, Age 59 y/o , SCREENING History of aunt with breast BREAST CANCER RISK ASSESSMENT: Not assessed. TECHNIQUE: Bilateral screening digital breast tomosynthesis with 2D and 3D images. Computer aided detection. COMPARISON: Prior exam(s) dated April 09, 2020.. FINDINGS: TISSUE DENSITY: The breast tissue is almost entirely fatty. Bilateral Breast Mammographic Findings: No significant masses, calcifications or other abnormalities are identified. No suspicious masses, areas of developing architectural distortion, or suspicious calcifications. There has been no significant interval change. BI/SCRN MAMM (CAD)W/ANURAG BILAT IMPRESSION: Stable examination. OVERALL FINAL ASSESSMENT BI-RADS 1: NEGATIVE. RECOMMEND ANNUAL MAMMOGRAPHIC SCREENING. RECOMMENDATION: Routine annual follow-up in 1 Year A letter with findings and recommendations will be mailed to the patient. Reading Location: [place] [id number]
== END | disposition home or self-care (01) ==
LOC: OPBI 16:06
PROVIDERS: PCP Family Medicine; Referring Provider Family Medicine; Visit Provider Family Medicine
DX: Z12.31 Encounter for screening mammogram for malignant neoplasm of breast (principal); E66.9 Obesity, unspecified
CPT/HCPCS: 77063; 77067